=== PATIENT | male | born 1980 ===

== ENCOUNTER 2025-06-10 15:32 | Emergency (ER) | payer SELFPAY ==
[~2025-06-10] VITALS: Ht 165.1 cm; Wt 69.0 kg
[2025-06-10 15:38] VITALS: O2SAT 99
[2025-06-10] MEDS: SODIUM CHLORIDE 0.9% 1,000 ML IV ONE (16:29)
[2025-06-10] MEDS: METOCLOPRAMIDE HCL 10MG/2ML VIAL IV ONE (16:29)
[2025-06-10] MEDS: KETOROLAC 15MG/ML VIAL IV ONE (16:29)
[2025-06-10] MEDS ORDERED: IBUP-2028 MT (18:04)
[2025-06-10] MEDS: LIDOCAINE 5% PATCH TOP SCH (18:14)
[2025-06-10 18:32] VITALS: BP 112/78; PULSE 79; RESP 18; TEMP 37.1; O2SAT 96
== END 2025-06-10 18:34 | disposition home or self-care (01) ==
LOC: ER 15:32
DX: S16.1XXA Strain of muscle, fascia and tendon at neck level, initial encounter (principal); R51.9 Headache, unspecified; X58.XXXA Exposure to other specified factors, initial encounter; Y93.89 Activity, other specified; Y92.89 Other specified places as the place of occurrence of the external cause; Y99.8 Other external cause status
CPT/HCPCS: 99285; 96374; 70450; 96361; 96375; J1885; J2765; J7030